=== PATIENT | female | born 1995 | race Caucasian/White ===

== ENCOUNTER 2017-01-21 15:28 | Emergency (ER) | payer OTHER ==
[~2017-01-21] VITALS: Ht 160 cm; Wt 101.9 kg
[2017-01-21 15:28] VITALS: Ht 160 cm; Wt 101.9 kg
[2017-01-21] MEDS ORDERED: ACETAMINOPHEN 500 MG TAB PO STA (16:13)
--- NOTE | 2017-01-21 16:19 | EMERGENCY ROOM VISIT NOTE ---
History Report prepared by Diamondibjeremie: Brant Matthew Under the Supervision of: Dr. Randal Garcia D.O. First contact with patient: 16:08 Chief Complaint: ANKLE PAIN Stated Complaint: ANKLE INJURY History of Present Illness The patient is a 21 year old female who presents to the Emergency Room with complaints of an acute right ankle injury that occurred just prior to arrival. The patient was in a bouncy castle when she fell off of a ladder and landed on the right foot / ankle. She has not had anything for pain. She denies any other injuries sustained from the fall. She denies nausea or vomiting. The patient is three weeks , and this is her first . She does smoke and denies alcohol consumption. She denies any medical problems and denies any regular medication use. Source of History: patient Onset: prior to arrival Position: ankle (right) Quality: other (injury) Timing: other (acute) Associated Symptoms: No nausea, No vomiting Review of Systems See HPI for pertinent positives & negatives. A total of 10 systems reviewed and were otherwise negative. Past Medical & Surgical with 3 completed weeks gestation Family History No pertinent family history Social History Smoking Status: Current Every Day Smoker Current/Historical Medications Scheduled Acetaminophen (Tylenol), 500 MG PO UD Allergies Coded Allergies: No Known Allergies (Unverified , 01/21/17) Physical Exam Vital Signs Date Time Temp Pulse Resp B/P Pulse Ox O2 Delivery O2 Flow Rate FiO2 01/21/17 17:48 36.8 98 25 126/68 96 01/21/17 17:18 98 25 96 01/21/17 17:00 126/68 01/21/17 16:48 102 25 100 01/21/17 16:43 102 18 120/72 99 01/21/17 16:00 125/78 01/21/17 15:58 108 18 99 01/21/17 15:48 122/75 01/21/17 15:48 103 18 122/75 98 Room Air 01/21/17 15:42 119 01/21/17 15:30 150/95 01/21/17 15:28 36.8 110 18 150/95 98 Room Air Physical Exam GENERAL: Patient is awake, alert, and in no acute distress. Patient is resting comfortably and showing no signs of anxiety EYES: The conjunctivae are clear. The pupils are round and reactive. EARS, NOSE, MOUTH AND THROAT: The nose is without any evidence of any deformity. Mucous membranes are moist tongue is midline NECK: The neck is nontender and supple. RESPIRATORY: Normal respiratory effort is noted there is no evidence of wheezing rhonchi or rales CARDIOVASCULAR: Regular rate and rhythm noted there no murmurs rubs or gallops normal S1 normal S2 GASTROINTESTINAL: The abdomen is soft. Bowel sounds are present in all quadrants. Abdomen is nontender MUSCULOSKELETAL/EXTREMITIES: There is no evidence of gross deformity full range of motion is noted in the hips and shoulders. Swelling and tenderness of the lateral right malleolus. Tenderness at the base of the fifth metatarsal. SKIN: There is no obvious evidence of any rash. There are no petechiae, pallor or cyanosis noted. NEUROLOGIC: Patient is awake alert and oriented x3. Medical Decision & Procedures ER Provider Diagnostic Interpretation: X-ray results as stated below per interpretation by me and the radiologist. RIGHT ANKLE MIN 3 VIEWS ROUTINE CLINICAL HISTORY: FALL Right trauma. Pain. COMPARISON: None. DISCUSSION: The bones and joint spaces appear intact. There is no evidence of fracture, dislocation or bony disease. There is no evidence for soft tissue swelling. IMPRESSION: Negative study. Electronically signed by: Oscar Santiago M.D. 01/21/2017 4:37 PM Dictated Date/Time: 01/21/2017 4:37 PM RIGHT FOOT MIN 3 VIEWS ROUTINE CLINICAL HISTORY: FALL Right trauma. Pain. COMPARISON: None. DISCUSSION: The bones and joint spaces appear intact. There is no evidence of fracture, dislocation or bony disease. There is no evidence for soft tissue swelling. IMPRESSION: Negative study. Electronically signed by: Oscar Santiago M.D. 01/21/2017 4:38 PM Dictated Date/Time: 01/21/2017 4:38 PM Medications Administered Medications (Trade) Dose Ordered Sig/Arsenio Route Start Time Stop Time Status Last Admin Dose Admin Acetaminophen (Tylenol Tab) 1,000 mg NOW STAT PO 01/21/17 16:13 01/21/17 16:15 DC 01/21/17 16:42 1,000 MG ED Course 1604: The patient was evaluated in room C4. A complete history and physical examination were performed. 1613: Tylenol 1000 mg PO. 1715: Reassessed the patient. Discussed the findings with her. She verbalized understanding and agreement of the treatment plan. The patient is ready for discharge. Medical Decision Prior records reviewed and summarized above. Triage Nursing notes reviewed and agree them. The patient's history was concerning for traumatic injury. Differential diagnosis: Etiologies such as fracture, dislocation, neurovascular compromise, compartment syndrome, soft tissue injury, as well as others were entertained. The patient is a 21-year-old female who presented to the emergency department for an evaluation of a right ankle injury. The patient was placed into a Gel splint and was able to ambulatory without difficulty. I discussed the patient's radiographic studies with her. She was encouraged to follow-up with her primary care physician for further evaluation. She was also encouraged to continue using Motrin and Tylenol for pain. Impression Primary Impression: Left ankle sprain Scribe Attestation The scribe's documentation has been prepared under my direction and personally reviewed by me in its entirety. I confirm that the note above accurately reflects all work, treatment, procedures, and medical decision making performed by me. Departure Information Dispostion Home / Self-Care Forms HOME CARE DOCUMENTATION FORM, IMPORTANT VISIT INFORMATION, School Instructions, Work Instructions Patient Instructions Ankle Sprain, [facility] Additional Instructions Follow-up with [facility] this week for reevaluation. Keep your leg iced and elevated as instructed. Continue using Tylenol as directed for pain. Problem Qualifiers Primary Impression: Left ankle sprain Encounter type: initial encounter Involved ligament of ankle: unspecified ligament Qualified Codes: S93.402A - Sprain of unspecified ligament of left ankle, initial encounter
[2017-01-21] MEDS ORDERED: ACET-1256 PO (16:33)
--- NOTE | 2017-01-21 16:40 | DIAGNOSTIC IMAGING REPORT ---
RIGHT ANKLE MIN 3 VIEWS ROUTINE CLINICAL HISTORY: FALL Right trauma. Pain. COMPARISON: None. DISCUSSION: The bones and joint spaces appear intact. There is no evidence of fracture, dislocation or bony disease. There is no evidence for soft tissue swelling. IMPRESSION: Negative study. Electronically signed by: Oscar Santiago M.D. 01/21/2017 4:37 PM Dictated Date/Time: 01/21/2017 4:37 PM
--- NOTE | 2017-01-21 16:41 | DIAGNOSTIC IMAGING REPORT ---
RIGHT FOOT MIN 3 VIEWS ROUTINE CLINICAL HISTORY: FALL Right trauma. Pain. COMPARISON: None. DISCUSSION: The bones and joint spaces appear intact. There is no evidence of fracture, dislocation or bony disease. There is no evidence for soft tissue swelling. IMPRESSION: Negative study. Electronically signed by: Oscar Santiago M.D. 01/21/2017 4:38 PM Dictated Date/Time: 01/21/2017 4:38 PM
[2017-01-21 17:48] VITALS: BP 126/68; PULSE 98; TEMP 36.8; O2SAT 96
== END 2017-01-21 17:48 | disposition home or self-care (01) ==
LOC: C.EDC 15:29
DX: S93.402A Sprain of unspecified ligament of left ankle, initial encounter (principal); W11.XXXA Fall on and from ladder, initial encounter; F17.200 Nicotine dependence, unspecified, uncomplicated